=== PATIENT | male | born 1960 | race Asian ===

== ENCOUNTER 2022-07-04 07:01 | Day surgery (SDC) | payer BC ==
[~2022-07-04] VITALS: Ht 177.8 cm; Wt 76.7 kg
[2022-07-04] MEDS ORDERED: BENZOCAINE 20% 0.5mL UD SPRAY MM ONE (08:49)
[2022-07-04] MEDS ORDERED: MEPERIDINE HCL/PF 25 MG/ML DISP.SYRIN ONE (08:50)
[2022-07-04] MEDS: MIDAZOLAM HCL 5 MG/5 ML VIAL ONE ×3 (08:54→09:08)
[2022-07-04] MEDS ORDERED: MEPERIDINE HCL/PF 25 MG/ML DISP.SYRIN IVP ONE (08:57)
[2022-07-04 11:14] VITALS: BP_SYST 102
== END 2022-07-04 10:22 | disposition home or self-care (01) ==
LOC: SDS 07:01 → SMU 07:02 → SDS 10:22
PROVIDERS: ATTEND Internal Medicine
DX: R19.5 Other fecal abnormalities (principal); D12.0 Benign neoplasm of cecum; D12.2 Benign neoplasm of ascending colon; D12.3 Benign neoplasm of transverse colon; D12.5 Benign neoplasm of sigmoid colon; K29.50 Unspecified chronic gastritis without bleeding; K29.80 Duodenitis without bleeding; K57.30 Diverticulosis of large intestine without perforation or abscess without bleeding; K64.8 Other hemorrhoids; K58.9 Irritable bowel syndrome, unspecified; Z79.82 Long term (current) use of aspirin; Z79.899 Other long term (current) drug therapy; Z20.822 Contact with and (suspected) exposure to COVID-19
CPT/HCPCS: 36415; 45385; 43239; 88305; 88312; 88313; 99153; 99152; U0003; G0378; J2250; J2175; 45382; 45384